=== PATIENT | male | born 1995 | race Caucasian/White ===

== ENCOUNTER 2024-09-15 21:58 | Emergency (ER) | payer OTHER ==
[~2024-09-15] VITALS: Ht 170.2 cm; Wt 63.8 kg
[2024-09-15 22:06] VITALS: TEMP 98.1
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
[2024-09-15] MEDS: LIDOcaine 1% 30ml preserv. free vial IJ ONE (22:20)
[2024-09-15] MEDS: BUPIVAcaine/PF 2.5 mg/ml (0.25%) 30ml vial IJ ONE (22:20)
[2024-09-15] MEDS: HYDROcodone/acetaminophen 10/325mg tab PO ONE (22:50)
--- NOTE | 2024-09-15 22:54 | RADIOLOGY REPORT ---
CLINICAL INDICATION: trauma TECHNIQUE: DI SHOULDER, COMPLETE (MIN 2 VWS) Comparison: None FINDINGS/IMPRESSION: : Anterior inferior subluxation of the humeral head with respect to the glenoid process of the scapula consistent with anterior shoulder dislocation. No definite evidence of fracture. Visualized portions of the left lung are clear. Soft tissues are unremarkable.
[2024-09-15] MEDS ORDERED: NAPR-56 PO (23:15)
[2024-09-15 23:37] VITALS: BP 125/89; PULSE 70; RESP 18; O2SAT 96
--- NOTE | 2024-09-15 23:49 | RADIOLOGY REPORT ---
CLINICAL INDICATION: post reduction TECHNIQUE: DI SHOULDER, COMPLETE (MIN 2 VWS) Comparison: DI SHOULDER, COMPLETE (MIN 2 VWS) on DOS: 09/15/24 FINDINGS / IMPRESSION: Interval reduction of previously seen anterior shoulder dislocation. No osseous or joint abnormality identified on the current study.
== END 2024-09-15 23:41 | disposition home or self-care (01) ==
LOC: ER 22:00
DX: S43.085A Other dislocation of left shoulder joint, initial encounter (principal); Z72.89 Other problems related to lifestyle; W22.8XXA Striking against or struck by other objects, initial encounter; Y93.89 Activity, other specified; Y92.89 Other specified places as the place of occurrence of the external cause; Y99.8 Other external cause status
CPT/HCPCS: 23650; 73030; 99284; J7030; A4565; A4620; A6449

== ENCOUNTER 2024-10-10 14:02 | Emergency (ER) | payer OTHER ==
[~2024-10-10] VITALS: Ht 170.2 cm; Wt 64.3 kg
[~2024-10-10 14:02] MED LIST: NAPR-56 PO
[2024-10-10 14:19] VITALS: TEMP 97.8
--- NOTE | 2024-10-10 14:20 | Physician Documentation ---
History of Present Illness Stated Complaint: LT SHOULDER PAIN HPI Patient is a 29-year-old male that reports to the emergency department for evaluation of left shoulder pain after falling down the stairs. Patient denies head neck or back pain at this time denies hitting his head denies any loss of consciousness. He reports that he is unable to complete range of motion on that shoulder and has significant pain just with lifting the shoulder. Patient d enies any other significant past medical history history at this time or any other complaints. Medication Reconciliation Allergies: Coded Allergies: No Known Allergies (Unverified , 10/10/24) Scheduled Naproxen (Naproxen), 1 TAB PO Q12H Past Medical History Past Medical History: No Pertinent History Past Surgical History: noncontributory Alcohol Use: Occasionally Drug Use: none Review of Systems Constitutional: Denies: chills, fever, weakness Eyes: Denies: pain, blurred vision ENT: Denies: ear pain, nose pain, throat pain, mouth pain Respiratory: Denies: cough, shortness of breath Cardiovascular: Denies: chest pain, palpitations Gastrointestinal: Denies: abdominal pain, nausea, vomiting Genitourinary: Denies: burning, dysuria Male Genitalia: Denies: penile discharge, testicular pain Neurological: Denies: headache, dizziness Musculoskeletal: Denies: pain, swelling Integumentary: Denies: rash, lesions Allergic/Immunologic: Denies: hives, itching Hematologic/Lymphatic: Denies: no symptoms reported Psychiatric: Denies: depression, anxiety Physical Exam Physical Exam General: Awake and Alert, no acute distress. HEENT: Conjunctiva pink, Sclera clear, Mucus Membranes moist. Neck: Supple without masses and tenderness. Resp: Unlabored. Lungs clear to auscultation bilaterally. Heart: Regular Rate and rhythm, normal S1 and S2 without murmur, rub or gallop. Musculoskeletal: Patient on exam has no motion of the left shoulder and appears anteriorly dislocated. He is neurovascularly intact distally. Motor function intact distally. Extremities: No cyanosis,clubbing or edema. Skin: Warm and Dry. Procedures Procedures Procedural sedation for left shoulder reduction: Patient has dislocated left shoulder and procedural sedation indicated for reduction of his shoulder. Status post time-out with written informed consent in RT at bedside patient's left shoulder was reduced utilizing traction on 1st attempt. Patient placed in his sling status post reduction. Asymmetry of bilateral shoulders has resolved and he has great improvement of his pain in his he had not feel postprocedure x-ray is necessary. Patient monitored by myself until achieving appropriate awareness to maintain airway. Total time of procedure 10 minutes Progress EKG/XRAY/CT/US/VASC/MRI EKG : Additional Comment EKG interpreted by myself shows time of 1849, rate 58, sinus bradycardia, normal axis, no ST changes Medical Decision Making Findings Patient presents to the emergency room with dislocated shoulder as per HPI. Patient underwent procedural sedation for reduction. Conservative management discussed. Departure Disposition: HOME / SELF CARE / HOMELESS Impression: Primary Impression: Dislocation of shoulder region Condition: Improved Discharge Instructions: Shoulder Dislocation Additional Instructions: Follow up with your doctor for any additional management issues that has you may need referral to orthopedist for possible ligamentous injury. Both ibuprofen and Tylenol may be taken together for pain. Referrals: NO PRIMARY CARE PROVIDER (PCP) Prescriptions Hydrocodone Bit/Acetaminophen 5/325 MG ([place] 5/325 MG) 5 Mg/325 Mg Tablet 1 TAB PO Q4-6 hours PRN for pain, #8 TAB Prov: JAXSON LAW MD 10/10/24 Education Educated: Patient Educated regarding: diagnosis, treatment, need for follow up Signature Scribe Signature: No scribe Attestation: The note accurately reflects work and decisions made by me.Jaxson Law MD 10/10/24 21:17 KEON BURROUGHS LIABILITY ANALYST Oct 10, 2024 14:20 SHAHRIAR LUCIA PAC Oct 10, 2024 16:28 JAXSON LAW MD Oct 10, 2024 20:47
--- NOTE | 2024-10-10 14:53 | RADIOLOGY REPORT ---
Indication: Shoulder Pain Technique: DI SHOULDER, COMPLETE (MIN 2 VWS)SHOULDERCM Comparison: None FINDINGS/IMPRESSION: Anterior dislocation of the left humeral head /shoulder. Left acromioclavicular joint intact.
[2024-10-10] MEDS: LIDOcaine 1% 30ml preserv. free vial IJ STA (17:04)
[2024-10-10] MEDS ORDERED: fentaNYL 50MCG/ML 2ML intranasal KIT (WASTE REMAINDER W/WITNESS) NAS STA (18:00)
[2024-10-10] MEDS: fentaNYL 50MCG/ML 2ML intranasal KIT (WASTE REMAINDER W/WITNESS) NAS STA (18:36)
[2024-10-10] MEDS ORDERED: propofol 10mg/ml 20ml vial IV ONE (18:40)
--- NOTE | 2024-10-10 18:52 | ELECTROCARDIOGRAPH REPORT ---
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
[2024-10-10] MEDS: ketorolac trometh 15mg/ml vial 15 MG/ML ML IV ONE (21:00)
[2024-10-10] MEDS ORDERED: HYDR-3965 PO (21:17)
[2024-10-10] MEDS: propofol 10mg/ml 20ml vial IV ONE (21:42)
[2024-10-10 21:49] VITALS: BP 129/87; PULSE 74; RESP 16; O2SAT 98
== END 2024-10-10 21:55 | disposition home or self-care (01) ==
LOC: ER 14:03
DX: S43.015A Anterior dislocation of left humerus, initial encounter (principal); Z79.899 Other long term (current) drug therapy; W10.9XXA Fall (on) (from) unspecified stairs and steps, initial encounter; Y93.89 Activity, other specified; Y92.89 Other specified places as the place of occurrence of the external cause; Y99.8 Other external cause status
CPT/HCPCS: 23650; 73030; 93005; 96374; 99285; J1885; A4565; A4620